=== PATIENT | male | born 1985 | race African-American/Black ===

== ENCOUNTER 2021-04-13 12:04 | Inpatient (IN) | payer MEDICAID ==
[~2021-04-13] VITALS: Ht 182.9 cm; Wt 74.0 kg
[2021-04-13 19:15] LABS: Basophils # (auto) 0.1 10 ^3/uL (0-0.2); Basophils % (auto) 0.5 % (0.0-2.0); Eosinophils # (auto) 0 10 ^3/uL (0-0.8); Eosinophils % (auto) 0.2 % (0.0-7.0); Hematocrit 49.4 % (41.0-53.0); Hemoglobin 16.3 g/dL (13.5-17.5); Lymphocytes # (auto) 2.2 10 ^3/uL (0.4-5.4); Lymphocytes % (auto) 15.7 % (10.0-50.0); Mean Corpuscular Hemoglobin 29.9 pg (28.0-32.0); Mean Corpuscular Volume 90.6 fL (80.0-100.0); Monocytes # (auto) 1.5 10 ^3/uL (0-1.3); Monocytes % (auto) 10.4 % (0.0-12.0); Neutrophils # (auto) 10.4 10 ^3/uL (1.6-8.6); Neutrophils % (auto) 73.2 % (37.0-80.0); Red Blood Cells 5.46 10^6/uL (4.5-5.90); Red Cell Distribution Width 16.2 % (11.8-14.3); White Blood Cell 14.3 10^3/uL (4.4-10.8)
[2021-04-13 19:41] LABS: Albumin 2.7 g/dL (3.4-5.0); BUN/Creatinine Ratio 3.7; Calcium 8.9 mg/dL (8.5-10.1); Magnesium 2.4 mg/dL (1.6-2.6); Potassium 3.7 mmol/L (3.5-5.1)
[2021-04-13 19:43] LABS: Bilirubin, Total 0.4 mg/dL (0.2-1.0); Total Protein 7.8 g/dL (6.4-8.2)
[2021-04-13 20:04] LABS: INR 1.08 (0.9-1.15)
[2021-04-13] MEDS ORDERED: fentaNYL CITRATE 100 MCG/2 ML VL IV ONE (20:45)
[2021-04-13] MEDS ORDERED: SODIUM CHLORIDE 0.9% 1,000 ML IV ONE (20:45)
[2021-04-13] MEDS ORDERED: ONDANSETRON HCL 4 MG/2 ML VIAL IV ONE (20:45)
[2021-04-13] MEDS ORDERED: CLINDAMYCIN 600MG IV 50 ML IV ONE (20:45)
[2021-04-13] MEDS ORDERED: ACETAMINOPHEN 325 MG TAB PO PRN (21:45)
[2021-04-13] MEDS ORDERED: cefTRIAXone 1GM/50ML D5W 50 ML IV ONE (21:45)
[2021-04-13] MEDS ORDERED: ONDANSETRON HCL 4 MG/2 ML VIAL IV PRN (21:45)
[2021-04-13] MEDS: CLINDAMYCIN 600MG IV 50 ML IV SCH (22:00)
[2021-04-13 23:18] VITALS: BP 122/83
[2021-04-14] MEDS: TEMAZEPAM 15 MG CAP PO PRN ×2 (00:45→22:31)
[2021-04-14] MEDS: HYDROcodone-ACET 5/325MG TAB PO PRN ×4 (02:15→22:32)
[2021-04-14 05:00] VITALS: BP 139/85
[2021-04-14] MEDS: CLINDAMYCIN 600MG IV 50 ML IV SCH (06:00)
[2021-04-14 06:04] LABS: Basophils # (auto) 0.1 10 ^3/uL (0-0.2); Basophils % (auto) 0.9 % (0.0-2.0); Eosinophils # (auto) 0.1 10 ^3/uL (0-0.8); Eosinophils % (auto) 0.8 % (0.0-7.0); Hematocrit 44.6 % (41.0-53.0); Hemoglobin 15.2 g/dL (13.5-17.5); Lymphocytes # (auto) 2.9 10 ^3/uL (0.4-5.4); Lymphocytes % (auto) 23.9 % (10.0-50.0); Mean Corpuscular Hemoglobin 30.8 pg (28.0-32.0); Mean Corpuscular Volume 90.6 fL (80.0-100.0); Monocytes # (auto) 1.4 10 ^3/uL (0-1.3); Monocytes % (auto) 11.9 % (0.0-12.0); Neutrophils # (auto) 7.5 10 ^3/uL (1.6-8.6); Neutrophils % (auto) 62.5 % (37.0-80.0); Red Blood Cells 4.92 10^6/uL (4.5-5.90); Red Cell Distribution Width 16.5 % (11.8-14.3)
[2021-04-14 06:43] LABS: Chloride 105 mmol/L (98-107); Potassium 3.3 mmol/L (3.5-5.1); Sodium 138 mmol/L (136-145)
[2021-04-14 06:47] LABS: Anion Gap 7 (5-15); BUN/Creatinine Ratio 4.7; Blood Urea Nitrogen 3 mg/dL (7-18); Calcium 8.4 mg/dL (8.5-10.1); Carbon Dioxide 26 mmol/L (21-32); GFR African American 182 mL/min; GFR Non-African American 150 mL/min; Glucose 101 mg/dL (74-106)
[2021-04-14 08:00] VITALS: BP 114/81
[2021-04-14] MEDS: cefTRIAXone 1GM/50ML D5W 50 ML IV SCH (08:37)
[2021-04-14 09:00] VITALS: BP 114/81
[2021-04-14 13:00] VITALS: BP 124/91
[2021-04-14] MEDS ORDERED: POTASSIUM EFFERVESENT TAB 25 MEQ PO ONE (13:00)
[2021-04-14] MEDS ORDERED: VANCOMYCIN PER PHARMACY 0 MG IV SCH (13:00)
[2021-04-14] MEDS: VANCOMYCIN 1GM/250ML 250 ML IV SCH ×2 (13:40→22:32)
[2021-04-14 15:51] LABS: Urine Bacteria NONE SEEN /hpf (None Seen); Urine Blood Negative /uL (Negative); Urine Specific Gravity 1.009 (1.001-1.035); Urine WBC 9 /hpf (0 - 3)
[2021-04-14 16:03] LABS: Alcohol, Urine < 3.0 mg/dL (0-10); Amphetamine Screen, Urine NEGATIVE (NEGATIVE); Barbiturate Scree,Urine NEGATIVE (NEGATIVE); Benzodiazephine Screen, Urine NEGATIVE (NEGATIVE); Cannabinoid Screen, Urine POSITIVE (NEGATIVE); Cocaine Screen, Urine NEGATIVE (NEGATIVE); Opiate Scree,Urine NEGATIVE (NEGATIVE); Phencyclidine Screen, Urine NEGATIVE (NEGATIVE)
[2021-04-14 20:15] VITALS: BP 132/99
[2021-04-14 22:00] VITALS: BP 132/99
[2021-04-15 05:20] VITALS: BP 137/78
[2021-04-15] MEDS: VANCOMYCIN 1GM/250ML 250 ML IV SCH ×3 (05:56→22:00)
[2021-04-15] MEDS: HYDROcodone-ACET 5/325MG TAB PO PRN ×2 (05:57→12:43)
[2021-04-15 06:45] LABS: Basophils # (auto) 0.1 10 ^3/uL (0-0.2); Basophils % (auto) 0.5 % (0.0-2.0); Eosinophils # (auto) 0.1 10 ^3/uL (0-0.8); Eosinophils % (auto) 1.3 % (0.0-7.0); Hematocrit 44.6 % (41.0-53.0); Hemoglobin 15.3 g/dL (13.5-17.5); Lymphocytes # (auto) 2.6 10 ^3/uL (0.4-5.4); Lymphocytes % (auto) 26.1 % (10.0-50.0); Mean Corpuscular Hgb Conc. 34.2 g/dL (32.0-36.0); Mean Corpuscular Volume 90.6 fL (80.0-100.0); Monocytes # (auto) 1.1 10 ^3/uL (0-1.3); Monocytes % (auto) 11.5 % (0.0-12.0); Neutrophils # (auto) 6.1 10 ^3/uL (1.6-8.6); Neutrophils % (auto) 60.6 % (37.0-80.0); Nucleated Red Blood Cells % 0.2 %; Red Blood Cells 4.92 10^6/uL (4.5-5.90); Red Cell Distribution Width 16.2 % (11.8-14.3)
[2021-04-15 07:01] LABS: INR 1.05 (0.9-1.15)
[2021-04-15] MEDS: cefTRIAXone 1GM/50ML D5W 50 ML IV SCH (08:48)
[2021-04-15 09:00] VITALS: BP 121/79
[2021-04-15 12:37] VITALS: BP 123/87
[2021-04-15] MEDS: D5W/LACTATED RINGERS 1,000 ML IV SCH ×2 (15:14→20:16)
[2021-04-15 17:20] VITALS: BP 129/88
[2021-04-15] MEDS ORDERED: LIDOCAINE 1% (LOCAL ANESTH.) PF 5ml SDV ONE (17:41)
[2021-04-15] MEDS ORDERED: MORPHINE SULFATE INJECTION 2 MG/ML SYRG IV ONE (18:00)
[2021-04-15 22:00] VITALS: BP 137/96
[2021-04-16] MEDS: TEMAZEPAM 15 MG CAP PO PRN (03:14)
[2021-04-16] MEDS: HYDROcodone-ACET 5/325MG TAB PO PRN (03:15)
[2021-04-16 05:00] VITALS: BP 126/80
[2021-04-16] MEDS: VANCOMYCIN 1GM/250ML 250 ML IV SCH ×2 (07:11→13:50)
[2021-04-16] MEDS: D5W/LACTATED RINGERS 1,000 ML IV SCH ×2 (07:11→16:30)
[2021-04-16 07:46] LABS: Basophils # (auto) 0 10 ^3/uL (0-0.2); Basophils % (auto) 0.4 % (0.0-2.0); Eosinophils # (auto) 0.2 10 ^3/uL (0-0.8); Eosinophils % (auto) 1.8 % (0.0-7.0); Hematocrit 45.2 % (41.0-53.0); Hemoglobin 15.3 g/dL (13.5-17.5); Lymphocytes # (auto) 3.2 10 ^3/uL (0.4-5.4); Lymphocytes % (auto) 37.7 % (10.0-50.0); Mean Corpuscular Hemoglobin 30.8 pg (28.0-32.0); Mean Corpuscular Hgb Conc. 33.9 g/dL (32.0-36.0); Mean Corpuscular Volume 90.8 fL (80.0-100.0); Monocytes # (auto) 0.7 10 ^3/uL (0-1.3); Monocytes % (auto) 8.8 % (0.0-12.0); Neutrophils # (auto) 4.4 10 ^3/uL (1.6-8.6); Neutrophils % (auto) 51.3 % (37.0-80.0); Nucleated Red Blood Cells % 0.3 %; Red Blood Cells 4.98 10^6/uL (4.5-5.90); Red Cell Distribution Width 16.4 % (11.8-14.3); White Blood Cell 8.5 10^3/uL (4.4-10.8)
[2021-04-16 08:00] VITALS: BP 122/87
[2021-04-16] MEDS: cefTRIAXone 1GM/50ML D5W 50 ML IV SCH (09:16)
[2021-04-16] MEDS ORDERED: IBUP600T27 PO (11:42)
[2021-04-16] MEDS ORDERED: SULF400T11 PO (11:42)
[2021-04-16 12:00] VITALS: BP 130/85
[2021-04-16 16:00] VITALS: BP 115/82
== END 2021-04-16 17:05 | disposition home health service (06) | DRG 383 ==
LOC: ER 12:04 → TELE 21:39 → TELE-CENTR 23:18
PROVIDERS: ADMIT Nurse Practitioner; ATTEND Hospitalist
PROC: 0J943ZZ Drainage of Right Neck Subcutaneous Tissue and Fascia, Percutaneous Approach (ICD-10-PCS; principal; 2021-04-15)
DX: L02.11 Cutaneous abscess of neck (principal); D72.829 Elevated white blood cell count, unspecified; Z20.822 Contact with and (suspected) exposure to COVID-19; F17.210 Nicotine dependence, cigarettes, uncomplicated
CPT/HCPCS: 36415; 70490; 73030; 76536; 80048; 80053; 80202; 80307; 81001; 82565; 83605; 83735; 85025; 85610; 85730; 87040; 87077; 87081; 87205; 87426; 96365; 96375; G0378; J0696; J2405; J3490

== ENCOUNTER → 2021-10-02 | Day surgery (SDC) | payer OTHER, MEDICAID ==
[~2021-10-02] VITALS: Ht 182.9 cm; Wt 76.7 kg
[~2021-10-02] MED LIST: BUPIVACAINE 0.25% INJ 50ML VIAL ONE; DexAMETHasone SOD PHOS 10MG/1ML VIAL INJ ONE; GLYCOPYRROLATE 0.2 MG/ML 1ML VIAL ONE; IBUP600T27 PO; KETOROLAC TROMETH 30 MG/ML 1ML VIAL IV ONE; KETOROLAC TROMETH 60MG/2ML VIAL IM ONE; KETOROLAC TROMETH 60MG/2ML VIAL ONE; METOCLOPRAMIDE HCL 5MG/ml INJ 2ml VIAL IV PRN; MIDAZOLAM HCL 2MG/2ML 2ml VIAL (1mg/ml) ONE; MORPHINE SULFATE 4 MG/ML SYR/VIAL IV PRN; NEOSTIGMINE 1 MG/ML INJ (10mg/10ML VIAL) ONE; ONDANSETRON HCL 4 MG/2 ML VIAL ONE; PROPOFOL 10 MG/ML 20 ML IV ONE; ROCURONIUM 10MG/ML 10ML VIAL IV ONE; SODIUM CHLORIDE LOCK 10 ML ONE; SULF400T11 PO; ceFAZolin 1GM VL ONE; ceFAZolin 1GM/50ML 50 ML IV ONE; fentaNYL CITRATE 100 MCG/2 ML VL ONE; fentaNYL CITRATE 5 ML ONE
[2021-10-02] MEDS: HYDROmorphone HCL 2 MG/ML VL IV PRN ×4 (16:31→17:01)
[2021-10-02 17:15] VITALS: BP 158/95
== END | disposition home or self-care (01) ==
LOC: SUR 09:33
PROVIDERS: ATTEND Surgery
DX: K40.20 Bilateral inguinal hernia, without obstruction or gangrene, not specified as recurrent (principal); F17.200 Nicotine dependence, unspecified, uncomplicated; Z98.890 Other specified postprocedural states; Z79.899 Other long term (current) drug therapy; Z20.822 Contact with and (suspected) exposure to COVID-19
CPT/HCPCS: 49650; 86850; 86900; 86901; C1713; C1781; J0690; J1100; J1170; J1885; J2250; J2405; J2704; J3010; J3490; J7030; S2900; U0003

== ENCOUNTER 2021-12-19 00:39 | Emergency (ER) | payer MEDICAID, OTHER ==
[~2021-12-19] VITALS: Ht 182.9 cm; Wt 74.8 kg
[~2021-12-19 00:39] MED LIST changes: -BUPIVACAINE 0.25% INJ 50ML VIAL ONE; -DexAMETHasone SOD PHOS 10MG/1ML VIAL INJ ONE; -GLYCOPYRROLATE 0.2 MG/ML 1ML VIAL ONE; -KETOROLAC TROMETH 30 MG/ML 1ML VIAL IV ONE; -KETOROLAC TROMETH 60MG/2ML VIAL IM ONE; -KETOROLAC TROMETH 60MG/2ML VIAL ONE; -METOCLOPRAMIDE HCL 5MG/ml INJ 2ml VIAL IV PRN; -MIDAZOLAM HCL 2MG/2ML 2ml VIAL (1mg/ml) ONE; -MORPHINE SULFATE 4 MG/ML SYR/VIAL IV PRN; -NEOSTIGMINE 1 MG/ML INJ (10mg/10ML VIAL) ONE; -ONDANSETRON HCL 4 MG/2 ML VIAL ONE; -PROPOFOL 10 MG/ML 20 ML IV ONE; -ROCURONIUM 10MG/ML 10ML VIAL IV ONE; -SODIUM CHLORIDE LOCK 10 ML ONE; -ceFAZolin 1GM VL ONE; -ceFAZolin 1GM/50ML 50 ML IV ONE; -fentaNYL CITRATE 100 MCG/2 ML VL ONE; -fentaNYL CITRATE 5 ML ONE
[2021-12-19 05:00] VITALS: BP 109/79
== END 2021-12-19 05:16 | disposition home or self-care (01) ==
LOC: ER 00:39
DX: S16.1XXA Strain of muscle, fascia and tendon at neck level, initial encounter (principal); F17.210 Nicotine dependence, cigarettes, uncomplicated; F12.10 Cannabis abuse, uncomplicated; V43.52XA Car driver injured in collision with other type car in traffic accident, initial encounter; Y93.89 Activity, other specified; Y92.89 Other specified places as the place of occurrence of the external cause; Y99.8 Other external cause status
CPT/HCPCS: 70450; 71250; 72125

== ENCOUNTER 2022-02-25 22:11 | Emergency (ER) | payer MEDICAID ==
[~2022-02-25] VITALS: Ht 182.9 cm; Wt 77.3 kg
[2022-02-25] MEDS ORDERED: SODIUM CHLORIDE 0.9% 1,000 ML IVB ONE (23:15)
[2022-02-25] MEDS ORDERED: IOHEXOL 350 MG/ML 100ML IJ ONE (23:18)
[2022-02-26 00:11] LABS: Basophils # (auto) 0 10 ^3/uL (0-0.2); Basophils % (auto) 0.5 % (0.0-2.0); Eosinophils # (auto) 0 10 ^3/uL (0-0.8); Eosinophils % (auto) 0.5 % (0.0-7.0); Hematocrit 47.5 % (41.0-53.0); Hemoglobin 16.2 g/dL (13.5-17.5); Lymphocytes # (auto) 2.6 10 ^3/uL (0.4-5.4); Lymphocytes % (auto) 32.8 % (10.0-50.0); Mean Corpuscular Hemoglobin 32.3 pg (28.0-32.0); Monocytes # (auto) 0.5 10 ^3/uL (0-1.3); Monocytes % (auto) 6.6 % (0.0-12.0); Neutrophils # (auto) 4.7 10 ^3/uL (1.6-8.6); Neutrophils % (auto) 59.6 % (37.0-80.0); Nucleated Red Blood Cells % 0.3 %; Red Cell Distribution Width 14.2 % (11.8-14.3); White Blood Cell 7.9 10^3/uL (4.4-10.8)
[2022-02-26 00:30] LABS: Albumin 3.6 g/dL (3.4-5.0); BUN/Creatinine Ratio 10.6; Calcium 8.7 mg/dL (8.5-10.1); Magnesium 2.1 mg/dL (1.6-2.6); Potassium 3.1 mmol/L (3.5-5.1)
[2022-02-26 00:33] LABS: Bilirubin, Total 0.5 mg/dL (0.2-1.0)
[2022-02-26] MEDS ORDERED: POTASSIUM EFFERVESENT TAB 25 MEQ PO ONE (01:00)
[2022-02-26] MEDS ORDERED: NEOMYCIN-BACITRACIN-POLYM UNITDOSE PKG TOP OINT TOP ONE (01:15)
[2022-02-26] MEDS ORDERED: CEPH-509 PO (02:20)
[2022-02-26] MEDS ORDERED: CEPHALEXIN 250 MG CAP PO ONE (02:30)
[2022-02-26 03:15] VITALS: BP 145/90
== END 2022-02-26 03:16 | disposition home or self-care (01) ==
LOC: ER 22:11
DX: S01.81XA Laceration without foreign body of other part of head, initial encounter (principal); R55 Syncope and collapse; F17.210 Nicotine dependence, cigarettes, uncomplicated; F12.10 Cannabis abuse, uncomplicated; W18.09XA Striking against other object with subsequent fall, initial encounter; Y93.89 Activity, other specified; Y92.89 Other specified places as the place of occurrence of the external cause; Y99.8 Other external cause status
CPT/HCPCS: 12013; 36415; 70496; 70498; 71045; 80053; 83735; 83880; 84443; 84484; 85025; 93005; 99285; Q9967